=== PATIENT | male | born 1955 | race African-American/Black ===

== ENCOUNTER 2017-03-21 12:42 | Emergency (ER) | payer SELFPAY ==
[~2017-03-21] VITALS: Ht 177.8 cm; Wt 99.8 kg
[~2017-03-21 12:42] MED LIST: DOPamine 400MG/250ML PREMIX 400 MG/250 ML BAG IV ONE; EPINEPHrine SYRINGE 1 MG/10 ML SYRINGE ONE; EPINEPHrine VIAL 30 MG/30 ML VIAL ONE
[2017-03-21] MEDS ORDERED: IV NORMAL SALINE 1000ML BAG 1,000 ML IV ONE (13:15)
--- NOTE | 2017-03-21 13:34 | RAD ---
AP chest. History: Post intubation AP view is taken of the chest. Endotracheal tube appears in good position. NG tube extends into the abdomen. There are no acute infiltrates. Heart is normal in size. Impression: 1. Endotracheal tube in good position.
--- NOTE | 2017-03-21 13:35 | RAD ---
Abdomen one view. History: Orogastric tube placement Single view was taken of the upper abdomen. There is a gastric tube which just enters the stomach and would be better positioned advanced 5 to 6 cm. Visualized lung bases are clear. Bowel gas pattern the upper abdomen is normal. Impression: 1. Gastric tube just enters the stomach.
[2017-03-21 13:38] LABS: INR 1.3 (0.8-1.1); PROTHROMBIN TIME PATIENT 15.3 SEC (11.7-14.0)
[2017-03-21 13:49] LABS: ALBUMIN 3.2 g/dL (3.4-5.0); ALBUMIN/GLOBULIN RATIO 0.9 (1.0-1.7); GFR 41.2; POTASSIUM 4.5 mmol/L (3.5-5.1); TOTAL BILIRUBIN 0.2 mg/dL (0.2-1.0); TOTAL PROTEIN 6.6 g/dL (6.4-8.2)
[2017-03-21 14:17] LABS: BASO # 0.1 x10^3/uL (0.0-0.2); BASO % 1 % (0-3); EOS % 2 % (0-3); HEMATOCRIT 43.4 % (39.0-53.0); HEMOGLOBIN 13.8 g/dL (13.0-17.5); LYMPH # 6.8 x10^3/uL (1.0-4.8); LYMPH % 55 % (24-48); MEAN CORPUSCULAR HEMOGLOBIN 31 pg (25-35); MEAN CORPUSCULAR HGB CONC 32 g/dL (31-37); MEAN CORPUSCULAR VOLUME 99 fL (79-100); MONO % 3 % (0-9); NEUT % 39 % (31-73); PLATELET COUNT 236 x10^3/uL (140-400); RED CELL DISTRIBUTION WIDTH 13.3 % (11.5-14.5); WHITE BLOOD COUNT 12.3 x10^3/uL (4.0-11.0)
[2017-03-21 14:28] LABS: % EOS 2 % (0-5); PLT ESTIMATE ADEQUATE (ADEQUATE)
--- NOTE | 2017-03-21 14:43 | PHYS DOC ---
Adult General Chief Complaint Chief Complaint: CPR/FULL ARREST HPI HPI Patient is a 61 year old male who presents with cardiac arrest. Patient brought from home where he was found in the bathroom by his family to be unresponsive. EMS found him to be pulseless, and initiated CPR. Initially they thought perhaps he was in fine V. fib and administered a single shock. Subsequently found to be in asystole for over 30 minutes. They continued to administer epinephrine. At one time there was questionable return of spontaneous circulation which was very short-lived and they could not obtain an EKG before he lost pulses. History could not be obtained from the patient due to his clinical condition. Review of Systems Review of Systems Unable to obtain due to clinical condition Current Medications Current Medications Current Medications Medications (Trade) Dose Ordered Sig/Aurelia Start Time Stop Time Status Last Admin Dose Admin Epinephrine HCl 4 mg/Sodium Chloride 254 ml @ 3.81 mls/hr 1X ONCE 03/21/17 13:15 03/24/17 07:54 Sodium Chloride 1,000 ml @ 1,000 mls/hr 1X ONCE 03/21/17 13:15 03/21/17 14:14 DC Allergies Allergies Allergies Coded Allergies Type Severity Reaction Last Updated Verified Unable to Assess 03/21/17 No Physical Exam Physical Exam Constitutional: Obese, unresponsive HENT: Normocephalic, atraumatic, bilateral external ears normal, igel tube in oropharynx, emesis around the mouth. Nose normal. Eyes: pupils fixed & dilated bilaterally. Neck: supple, no stridor. Cardiovascular: Pulseless, CPR in progress Lungs & Thorax: No spontaneous respirations, breath sounds present bilaterally with bagging Abdomen: Distended Skin: Cool Extremities: No deformity Neurologic: GCS 3 Current Patient Data Lab Values Laboratory Tests Test 03/21/17 13:18 White Blood Count 12.3 x10^3/uL (4.0-11.0) H Red Blood Count 4.40 x10^6/uL (4.30-5.70) Hemoglobin 13.8 g/dL (13.0-17.5) Hematocrit 43.4 % (39.0-53.0) Mean Corpuscular Volume 99 fL (79-100) Mean Corpuscular Hemoglobin 31 pg (25-35) Mean Corpuscular Hemoglobin Concent 32 g/dL (31-37) Red Cell Distribution Width 13.3 % (11.5-14.5) Platelet Count 236 x10^3/uL (140-400) Neutrophils (%) (Auto) 39 % (31-73) Lymphocytes (%) (Auto) 55 % (24-48) H Monocytes (%) (Auto) 3 % (0-9) Eosinophils (%) (Auto) 2 % (0-3) Basophils (%) (Auto) 1 % (0-3) Neutrophils # (Auto) 4.8 x10^3uL (1.8-7.7) Lymphocytes # (Auto) 6.8 x10^3/uL (1.0-4.8) H Monocytes # (Auto) 0.4 x10^3/uL (0.0-1.1) Eosinophils # (Auto) 0.2 x10^3/uL (0.0-0.7) Basophils # (Auto) 0.1 x10^3/uL (0.0-0.2) Segmented Neutrophils % 20 % (35-66) L Band Neutrophils % 12 % (0-9) H Lymphocytes % 62 % (24-48) H Monocytes % 2 % (0-10) Eosinophils % 2 % (0-5) Metamyelocytes % 2 % (0-0) H Platelet Estimate Adequate (ADEQUATE) Platelet Clumps, EDTA Present Prothrombin Time 15.3 SEC (11.7-14.0) H Prothrombin Time INR 1.3 (0.8-1.1) H PTT 49 SEC (24-38) H Sodium Level 143 mmol/L (136-145) Potassium Level 4.5 mmol/L (3.5-5.1) Chloride Level 103 mmol/L (98-107) Carbon Dioxide Level 20 mmol/L (21-32) L Anion Gap 20 (6-14) H Blood Urea Nitrogen 23 mg/dL (8-26) Creatinine 2.0 mg/dL (0.7-1.3) H Estimated GFR (Cockcroft-Gault) 41.2 BUN/Creatinine Ratio 12 (6-20) Glucose Level 512 mg/dL (70-99) *H Calcium Level 9.0 mg/dL (8.5-10.1) Total Bilirubin 0.2 mg/dL (0.2-1.0) Aspartate Amino Transferase (AST) 467 U/L (15-37) H Alanine Aminotransferase (ALT) 497 U/L (16-63) H Alkaline Phosphatase 78 U/L (46-116) Troponin I Quantitative 0.022 ng/mL (0.000-0.055) EP-Njd-O-Type Natriuretic Peptide 285 pg/mL (0-124) H Total Protein 6.6 g/dL (6.4-8.2) Albumin 3.2 g/dL (3.4-5.0) L Albumin/Globulin Ratio 0.9 (1.0-1.7) L Laboratory Tests 03/21/17 13:18 Laboratory Tests 03/21/17 13:18 EKG EKG interpreted by me: irregular rate 77, no STEMI[] Radiology/Procedures Radiology/Procedures PROCEDURE: KUB Abdomen one view. History: Orogastric tube placement Single view was taken of the upper abdomen. There is a gastric tube which just enters the stomach and would be better positioned advanced 5 to 6 cm. Visualized lung bases are clear. Bowel gas pattern the upper abdomen is normal. Impression: 1. Gastric tube just enters the stomach. DICTATED and SIGNED BY: EMILEE MCCORD MD DATE: 03/21/171331 PROCEDURE: CHEST AP ONLY AP chest. History: Post intubation AP view is taken of the chest. Endotracheal tube appears in good position. NG tube extends into the abdomen. There are no acute infiltrates. Heart is normal in size. Impression: 1. Endotracheal tube in good position. DICTATED and SIGNED BY: EMILEE MCCORD MD DATE: 03/21/171330[] Course & Med Decision Making Course & Med Decision Making Pertinent Labs and Imaging studies reviewed. (See chart for details) The patient presents with CPR in progress and prolonged cardiac arrest. Continued CPR and administered epinephrine per ACLS protocol. After 2 rounds of CPR he was found to have return of spontaneous circulation. Initiated epinephrine drip. He had multiple recurrence of loss of pulses. It is asked on an ongoing basis with the family has very poor prognosis. Ultimately they agreed that he would not want to be kept alive artificially and requested that no further attempts at resuscitation be made. CPR and bagging were discontinued. Time of was 1351. He has a PCP at the [facility] who could not be contacted. Discussed with Dr. Graff will signed the certificate. [place] and [place] [facility] [place] time: 90 minutes [] Dragon Disclaimer Dragon Disclaimer This electronic medical record was generated, in whole or in part, using a voice recognition dictation system. Departure Departure Impression: Primary Impression: Cardiac arrest Disposition: 20 Condition: JOSE SAUNDERS MD Mar 21, 2017 14:43
--- NOTE | 2017-03-22 11:10 | EKG ---
[facility] [address] [place] [address] Test Date: 2017-03-21 Test Time: 12:52:41 Pat Name: BRANDON MURRY Department: Room: Gender: M Biological Chemist: : [id number] Requested By: JOSE SAUNDERS Order Number: [id number] Reading MD: Measurements Intervals [place] Rate: 77 P: DE: QRS: -24 QRSD: 84 T: 108 QT: 336 QTc: 382 Interpretive Statements IRREGULAR RHYTHM, NO P-WAVE FOUND LEFTWARD AXIS T ABNORMALITY IN ANTEROLATERAL LEADS ABNORMAL ECG RI6.01 No previous ECG available for comparison
== END 2017-03-21 13:51 | disposition expired ==
LOC: ER 12:42
DX: I46.9 Cardiac arrest, cause unspecified (principal)
CPT/HCPCS: 31500; 36415; 71010; 74000; 80053; 83880; 84484; 85007; 85027; 85610; 85730; 92950; 93005; 99291; 99292; J0171; J1265